=== PATIENT | female | born 1980 | race African-American/Black ===

== ENCOUNTER → 2017-11-23 | Day surgery (SDC) | payer OTHER ==
[2017-11-22 17:38] VITALS: BMI 31.7
[~2017-11-23] MED LIST: Fentanyl 100 MCG/2 ML VIAL ONE; HYDROcodone/Acetaminophen 5/325 mg Tablet ONE; Midazolam HCl 2 mg/2 ml Vial ONE; Midazolam HCl 2 mg/ml Syrup 5 ml UD Cup ONE
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
== END ==
LOC: SDC/OP 11:16
PROVIDERS: ATTEND Neurological Surgery
DX: M54.16 Radiculopathy, lumbar region (principal)
CPT/HCPCS: 72148; 96374; J2250; J2270; J3010

== ENCOUNTER 2018-01-26 16:58 | Outpatient (CLI) | payer OTHER ==
[2018-01-26 18:34] LABS: BHCG - Serum Negative (NEGATIVE); Pregs Control Background? CLEAR/WHITE (CLR/WHITE); Pregs Control Bar Appear? YES (CONTROL BAR)
== END 2018-01-26 16:59 | disposition home or self-care (01) ==
LOC: LABBT 16:58
PROVIDERS: ATTEND Neurological Surgery
DX: Z01.818 Encounter for other preprocedural examination (principal); M54.16 Radiculopathy, lumbar region
CPT/HCPCS: 84703

== ENCOUNTER 2018-01-28 06:25 | Observation (INO) | payer OTHER ==
[2018-01-26 17:24] VITALS: BMI 33.4
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
[2018-01-28] MEDS ORDERED: CEFAZOLIN/Water 2 GM/20 ML SYRINGE ONE ×2 (07:21→16:31)
[2018-01-28] MEDS ORDERED: Midazolam HCl 2 mg/2 ml Vial ONE (07:44)
[2018-01-28] MEDS ORDERED: Thrombin 5000 UNITS/5 ML VIAL ONE (08:22)
[2018-01-28] MEDS ORDERED: Bupivacaine HCl 0.5%/Epinephrine 1:200,000/PF 30 ml Vial ONE (08:22)
[2018-01-28] MEDS ORDERED: Fentanyl 250 MCG/5 ML VIAL ONE (08:29)
[2018-01-28] MEDS ORDERED: Fentanyl 100 MCG/2 ML VIAL ONE ×2 (10:26→10:57)
--- NOTE | 2018-01-28 10:59 | OP ---
DATE OF PROCEDURE: 01/28/2018 SURGEON: Sammy Garcia M.D. MANAGER CONTRACT: Carl Simon PA-C. INDICATION: Pain. DIAGNOSIS: Lumbar radiculopathy. PROCEDURE: L5-S1 laminectomy, bilateral medial facetectomies, decompression of descending nerve root s. ANESTHESIA: General. TECHNIQUE: The patient was brought into the operating room and placed under general anesthesia. She was flipped from a supine or prone position on the operating room table. A linear incision was plan rylee over the L5-S1 segment. After prepping and draping and after an appropriate operative pause, the incision was created. Soft tissues were swept away from midline. After confirming the appropriate level with C-arm fluoroscopy, an Adson rongeur as well as a high-speed cutting drill bit as well as 2 , 3 and 4 mm Kerrisons used to perform a laminectomy at the L5-S1 interface. The laminectomy was ext ended laterally to encompass the medial aspect of the facet joints where we identified the descending S1 nerve roots which were slightly displaced from the facet joints. After decompressing the nerve r oots they were free from pressure. The wound was then irrigated. Hemostasis was maintained througho ut. The wound was then closed in anatomic layers and a pressure dressing was applied. There were no known procedural complications.
[2018-01-28] MEDS ORDERED: Acetaminophen/Codeine 30-300mg Tablet ONE (12:04)
[2018-01-28] MEDS ORDERED: Cyclobenzaprine 10 MG TAB ONE (12:47)
[2018-01-28] MEDS ORDERED: Morphine 4 MG/ML VIAL ONE (15:05)
[2018-01-28] MEDS ORDERED: Dexamethasone 20 MG/5 ML VIAL ONE (15:26)
[2018-01-28] MEDS ORDERED: Lidocaine 1% PF 5 ML VIAL ONE (15:26)
[2018-01-28] MEDS ORDERED: Ketorolac Tromethamine 30 MG/ML VIAL ONE (15:26)
[2018-01-28] MEDS ORDERED: PROPOFOL 200 MG/20 ML VIAL ONE (15:26)
[2018-01-28] MEDS ORDERED: Ondansetron HCl/PF 4 MG/2 ML Vial ONE (15:26)
[2018-01-28] MEDS ORDERED: Acetaminophen 650 MG Suppository PR PRN (19:06)
[2018-01-28] MEDS ORDERED: Bisacodyl 10 MG SUPP PR PRN (19:06)
[2018-01-28] MEDS ORDERED: diphenhydrAMINE 50 MG/ML VIAL IVP PRN (19:06)
[2018-01-28] MEDS ORDERED: Acetaminophen 325 MG TAB PO PRN (19:06)
[2018-01-28] MEDS ORDERED: Morphine 4 MG/ML Carpuject SLOW IVP PRN (19:06)
[2018-01-28] MEDS ORDERED: Mag-Al 1200 mg/1200 mg/30 ML UDCUP PO PRN (19:06)
[2018-01-28] MEDS ORDERED: diphenhydrAMINE 25 MG CAP PO PRN (19:06)
[2018-01-28] MEDS ORDERED: Acetaminophen/Codeine 30-300mg Tablet PO PRN (19:06)
[2018-01-28] MEDS ORDERED: Ondansetron HCl/PF 4 MG/2 ML Vial SLOW IVP PRN (19:07)
[2018-01-28] MEDS ORDERED: Morphine 4 MG/ML VIAL SLOW IVP PRN (19:15)
[2018-01-28] MEDS: Sodium Chloride 0.9% 1,000 ML IV SCH (19:29)
[2018-01-28] MEDS: Morphine 4 MG/ML VIAL SLOW IVP PRN (19:36)
[2018-01-28] MEDS: Acetaminophen/Codeine 30-300mg Tablet PO PRN (21:52)
[2018-01-28] MEDS: Cyclobenzaprine 10 MG TAB PO PRN (21:53)
[2018-01-29] MEDS: CEFAZOLIN/Water 2 GM/20 ML SYRINGE SLOW IVP SCH ×2 (00:22→09:02)
[2018-01-29] MEDS: Morphine 4 MG/ML VIAL SLOW IVP PRN ×2 (03:09→09:08)
[2018-01-29 03:13] VITALS: TEMP 98.5
[2018-01-29] MEDS: Sodium Chloride 0.9% 1,000 ML IV SCH (07:15)
[2018-01-29] MEDS: Acetaminophen/Codeine 30-300mg Tablet PO PRN (07:17)
[2018-01-29] MEDS: Cyclobenzaprine 10 MG TAB PO PRN (07:17)
[2018-01-29] MEDS ORDERED: Dexamethasone 10 MG in Sodium Chloride 0.9% 50 ML IVPB SCH (08:15)
[2018-01-29 08:17] VITALS: BP 104/62
== END 2018-01-29 10:40 | disposition home or self-care (01) ==
LOC: SDC 06:25 → SURG A 18:14
PROVIDERS: ADMIT Neurological Surgery; ATTEND Neurological Surgery
PROC: 01NB0ZZ Release Lumbar Nerve, Open Approach (ICD-10-PCS; principal; 2018-01-29)
DX: M54.16 Radiculopathy, lumbar region (principal); Z79.51 Long term (current) use of inhaled steroids; Z79.899 Other long term (current) drug therapy
CPT/HCPCS: 76001; 96365; 96374; 96375; 96376; G0378; J0670; J1100; J1885; J2001; J2250; J2270; J2405; J2704; J3010; J7050

== ENCOUNTER 2021-04-03 09:01 | Outpatient (CLI) | payer BC ==
[2021-04-03] MEDS ORDERED: Magnevist 469MG/ML 20 ML VIAL ONE (10:29)
== END 2021-04-03 09:02 | disposition home or self-care (01) ==
LOC: BICMRI 09:01
PROVIDERS: ATTEND Neurological Surgery
DX: M54.5 Low back pain (principal); M47.816 Spondylosis without myelopathy or radiculopathy, lumbar region; M51.37 Other intervertebral disc degeneration, lumbosacral region
CPT/HCPCS: 72110; 72158; A9579